=== PATIENT | female | born 1950 | race Caucasian/White ===

== ENCOUNTER → 2022-03-27 14:09 | Outpatient (CLI) | payer MEDICARE, SELFPAY ==
--- NOTE | 2022-03-27 | DI.RAD_ITS ---
Exam(s) XR KNEE RT 3V AP,LAT,JUAN EXAM: XR KNEE RT 3V AP,LAT,JUAN CLINICAL HISTORY: RT knee pain.. TECHNIQUE: 2D digital imaging was performed. COMPARISON: No exams were available for comparison FINDINGS: 3 views No evidence of fracture or prominent joint effusion. However, there is significant degenerative vega ge in the medial patellofemoral compartments; less so in the lateral compartment although there is an element of chondrocalcinosis in the lateral compartment noted. There are also loose intra-articular calcified bodies seen within the intercondylar notch. Also prominent osteophyte off the superior as pect of the patella, posteriorly and projecting towards the quadriceps fat pad. IMPRESSION: Degenerative changes, most evident in the medial and patellofemoral compartments. Loose intra-articu lar bodies also evident. DATA REPOSITORY: RADIATION DOSE DELIVERED:
--- NOTE | 2022-03-27 15:14 | DI.VRAD_ITS ---
PROCEDURE INFORMATION: Exam: XR Right Knee Exam date and time: 03/27/2022 2:56 PM Age: 71 years old Clinical indication: Right; Patient HX: RT knee pain; Twisting injury x 2 weeks ago TECHNIQUE: Imaging protocol: Radiologic exam of the Right knee. Views: 3 views. COMPARISON: No relevant prior studies available. FINDINGS: Bones/joints: There is narrowing of the medial and lateral femoral tibial joint compartments. Faint chondrocalcinosis present within the lateral compartment of the right knee. There is narrowing of the patellofemoral compartment. There are marginal osteophytes present. Soft tissues: There is mild soft tissue swelling present. Other findings: There are small suprapatellar and femorotibial joint effusions present. IMPRESSION: 3 compartmental degenerative changes of the right knee with joint effusion and soft tissue swelling. Dictated and Authenticated by: Jasson Golden MD. Ordering:SILVERIO Le MD
== END ==
PROVIDERS: Visit Provider Physician Assistant Medical
DX: M25.561 Pain in right knee (principal); M17.11 Unilateral primary osteoarthritis, right knee; M23.41 Loose body in knee, right knee
CPT/HCPCS: 73562